=== PATIENT | female | born 1995 | race Caucasian/White ===

== ENCOUNTER 2017-02-01 09:49 | Emergency (ER) | payer OTHER ==
[~2017-02-01] VITALS: Ht 170.2 cm; Wt 54.1 kg
[2017-02-01 09:53] VITALS: TEMP 36.7; Ht 170.2 cm; Wt 54.1 kg
--- NOTE | 2017-02-01 10:05 | EMERGENCY ROOM VISIT NOTE ---
History Report prepared by Kavon: Tali Talavera Under the Supervision of: Dr. William Morrow M.D. First contact with patient: 09:58 Chief Complaint: EYE ASSESSMENT Stated Complaint: RED/ITCHY EYE-NO PAIN History of Present Illness The patient is a 21 year old female who presents to the Emergency Room with complaints of persistent left eye redness for the past 2 days. The eye is itchy and gets "gunky" in the afternoons. There are no bumps on her eye. She is not having any trouble with her other eye. She used eyedrops yesterday which helped. She denies neck pain, fever, or other symptoms. She wears glasses. She denies any contact lens use. She denies any history of allergies. Source of History: patient Onset: 2 days Position: eye (left) Quality: other (redness) Timing: other (persistent) Modifying Factors (Relieving): other (eyedrops) Associated Symptoms: No fevers, No neck pain Note: Pt reports eye itching. Review of Systems See HPI for pertinent positives & negatives. A total of 10 systems reviewed and were otherwise negative. Family History No pertinent family history stated. Social History Smoking Status: Never Smoker Marital Status: single Occupation Status: [employer] student Current/Historical Medications Scheduled Polymyxin B-Trimethoprim (Polytrim Oph Talita), 1 DROPS OP Q6 Allergies Coded Allergies: No Known Allergies (Unverified , 02/01/17) Physical Exam Vital Signs Date Time Temp Pulse Resp B/P Pulse Ox O2 Delivery O2 Flow Rate FiO2 02/01/17 10:30 73 16 103/52 99 Room Air 02/01/17 09:53 36.7 89 18 103/70 98 Room Air Physical Exam GENERAL: Patient is well appearing and in minimal distress. HEENT: No acute trauma, normocephalic atraumatic, mucous membranes moist, no nasal congestion, no scleral icterus. Moderate conjunctivitis of the left eye, mild conjunctivitis of the right eye, no corneal abrasions appreciated, normal funduscopic exam. NECK: No stridor, no adenopathy, no meningismus, trachea is midline. LUNGS: No dyspnea. Clear to auscultation and equal bilaterally. No wheeze, no rhonchi. HEART: Regular rate and rhythm. No murmurs, rubs, gallops appreciated. EXTREMITIES: Normal motion all extremities, no cyanosis, no edema. NEUROLOGIC: Alert and oriented, no acute motor or sensory deficits, no focal weakness, cranial nerves grossly intact. SKIN: No rash, no jaundice, no diaphoresis. Medical Decision & Procedures Medications Administered Medications (Trade) Dose Ordered Sig/Justina Route Start Time Stop Time Status Last Admin Dose Admin Polymyxin/ Trimethoprim Sulfate (Polytrim Oph Soln) 2 drops NOW ONCE OP 02/01/17 10:15 02/01/17 10:16 DC 02/01/17 10:15 2 DROPS ED Course 1000: The patient was evaluated in room B2. A complete history and physical exam was performed. 1010: I reevaluated the patient. I discussed results and discharge instructions : She verbalized understanding and agreement. The patient is ready for discharge. 1015: Polytrim Oph Soln 2 drops OP. Medical Decision 21 yr old female with left eye conjunctivitis and to a lesser extent right eye. No photophobia and patient notes vision unchanged. No proptosis nor pain with ROM. Mild drainage and clearly uncomfortable though not severe distress. Discussed likelihood this is viral but given symptoms seems reasonable empiric abx. Discussed symptoms requiring return. Stable at discharge. This is no septal cellulitis, herpetic in nature, nor evidence of ulcers. Impression Primary Impression: Conjunctivitis, left eye Scribe Attestation The scribe's documentation has been prepared under my direction and personally reviewed by me in its entirety. I confirm that the note above accurately reflects all work, treatment, procedures, and medical decision making performed by me. Departure Information Dispostion Home / Self-Care Prescriptions Polymyxin B-Trimethoprim (POLYTRIM OPH TALITA) 1 Talita Talita 1 DROPS OP Q6 for 7 Days, #10 ML Prov: William Morrow M.D. 02/01/17 Patient Instructions Conjunctivitis, My [facility] Problem Qualifiers Primary Impression: Conjunctivitis, left eye Conjunctivitis type: acute Acute conjunctivitis type: unspecified Qualified Codes: H10.32 - Unspecified acute conjunctivitis, left eye
[2017-02-01] MEDS ORDERED: POLYSOL3 OP (10:06)
[2017-02-01] MEDS ORDERED: TRIMETHOPRIM/POLYMYXIN B OP ONE (10:15)
[2017-02-01 10:30] VITALS: BP 103/52; PULSE 73; O2SAT 99
== END 2017-02-01 10:36 | disposition home or self-care (01) ==
LOC: C.EDB 09:51
DX: H10.9 Unspecified conjunctivitis (principal)

== ENCOUNTER 2017-12-04 10:39 | Emergency (ER) | payer OTHER ==
[~2017-12-04] VITALS: Ht 167.6 cm; Wt 55.3 kg
[2017-12-04 10:58] VITALS: BP 116/74; PULSE 87; TEMP 37; Ht 167.6 cm; Wt 55.3 kg
[2017-12-04 11:01] VITALS: O2SAT 99
[2017-12-04] MEDS ORDERED: CEPH500C PO (11:22)
--- NOTE | 2017-12-04 15:49 | EMERGENCY ROOM VISIT NOTE ---
History First contact with patient: 11:01 Chief Complaint: ALLERGIC REACTION Stated Complaint: LEFT EAR PIERCING INFECTION, ALLERGIC/ITCHY History of Present Illness The patient is a 22 year old female who presents to the Emergency Room with complaints of bilateral redness and swelling of her earlobes. Patient reports that she had her ears pierced approximately 3 months ago. She reports that the earrings are supposedly 10kt gold. When she started to notice some redness around the piercing site, she started to clean them with iodine, saltwater and Neosporin. She reports that the redness has progressively worsened. She has not noticed any purulent drainage from the piercing site. She rates her discomfort a 3 out of 10. The patient reports that she has had a prior history of allergic reaction to iodine when used on her knees. Review of Systems 10 system review was performed and was negative except for pertinent positives and negatives as indicated in history of present illness Past Medical/Surgical History Medical Problems: (1) No significant past medical history Surgical Problems: (1) No history of previous surgery Family History No significant family history Social History Smoking Status: Never Smoker Alcohol Use: none Marital Status: single Occupation Status: [employer] student Current/Historical Medications Scheduled Cephalexin Monohydrate (Keflex), 500 MG PO TID Physical Exam Vital Signs Date Time Temp Pulse Resp B/P (MAP) Pulse Ox O2 Delivery O2 Flow Rate FiO2 12/04/17 11:01 99 Room Air 12/04/17 10:58 37.0 87 17 116/74 99 Room Air Physical Exam CONSTITUTIONAL: Healthy and well nourished. Alert and oriented X 3 with positive affect. Patient does not appear in any acute distress. HEENT: Examination of bilateral earlobes shows earrings in place. The patient has notable erythema and crusting of the skin of bilateral earlobes. They are mildly tender to palpation. Pupils equal, round and reactive. NECK: Full active range of motion without discomfort. MUSCULOSKELETAL: Full range of motion of all joints without discomfort. INTEGUMENTARY: No rash or other significant dermatologic conditions noted. NEUROLOGIC: No focal neurologic deficits noted. Medical Decision & Procedures ED Course Patient history and physical exam were performed. Nurse's notes were reviewed. Vital signs were reviewed and were normal. The patient was advised that her skin condition is either secondary to an allergic reaction to the iodine or Neosporin. I also explained that it could be secondary to infection from the ear rings, and suggested that she remove the earrings. The patient did not want to do that at this time. The patient was provided a prescription for Keflex, and instructed to refrain from applying any other topical products to the ear. If the erythema persists, she was encouraged to follow-up with her PCP for further reevaluation. I also encouraged her to remove the earrings if the erythema persists as she may be allergic to the earrings. She was instructed to return to the emergency department for any significantly worsening redness, swelling, pain or fever. The patient was happy with plan of care, and voiced understanding of all discharge instructions. Medical Decision Medication Reconcilliation Current Medication List: was personally reviewed by me Blood Pressure Screening Patient's blood pressure: Normal blood pressure Impression Primary Impression: Bilateral ear contact dermatitis Departure Information Dispostion Home / Self-Care Prescriptions Cephalexin Monohydrate (Keflex) 500 Mg Cap 500 MG PO TID for 7 Days, #21 CAP Prov: Cuate Tirado PA 12/04/17 Forms HOME CARE DOCUMENTATION FORM, IMPORTANT VISIT INFORMATION Patient Instructions My [facility] Additional Instructions Avoid applying iodine, Neosporin or other cleaning agents except for normal saline that was provided to clean the wounds. Complete Keflex antibiotics as prescribed. If the redness is not improving within the next 3-4 days, suggest removing the ear rings. Seek further emergent reevaluation for any progressively worsening redness, swelling, pain or fever.
== END 2017-12-04 11:29 | disposition home or self-care (01) ==
LOC: C.EDB 10:40 → C.EDD 11:29
DX: L25.8 Unspecified contact dermatitis due to other agents (principal)